=== PATIENT | female | born 1970 | race Two or more races ===

== ENCOUNTER 2024-02-09 13:37 | Outpatient (CLI) | payer OTHER | END 2024-02-09 13:53 | disposition home or self-care (01) | LOC: RAD 13:37 | PROVIDERS: ATTEND Orthopaedic Surgery | DX: M25.561 Pain in right knee (principal); M25.562 Pain in left knee | CPT/HCPCS: 73721 ==

== ENCOUNTER 2024-08-30 13:51 | Emergency (ER) | payer OTHER ==
[~2024-08-30] VITALS: Ht 167.6 cm; Wt 77.6 kg
[2024-08-30] MEDS ORDERED: ZYRTEC10 M3 PO (14:15)
[2024-08-30] MEDS ORDERED: FLONASE16 GM NS (14:15)
[2024-08-30] MEDS ORDERED: XYZAL5 MG (14:16)
[2024-08-30] MEDS ORDERED: DEXAMETHASONE SODIUM PHOSPHATE 4 MG/ML VIAL IM STA (16:14)
[2024-08-30] MEDS ORDERED: CETIRIZINE HCL 5 MG/5 ML ML PO STA (16:14)
[2024-08-30 16:36] LABS: HEMATOCRIT 42.3 % (36.0-45.00); HEMOGLOBIN 14.2 g/dL (12.0-15.00); MEAN CELL VOLUME 82.3 fL (80.00-100.00); MEAN CORPUSCULAR HEMOGLOBIN 27.6 pg (27.00-32.0); MEAN CORPUSCULAR HGB CONC 33.5 g/dl (32.0-36.0); PLATELET COUNT 274 K/uL (150-450); RED BLOOD COUNT 5.14 M/uL (4.00-6.00)
[2024-08-30] MEDS ORDERED: AMOX-CLAV 875-1 EAC1 PO (17:46)
[2024-08-30] MEDS ORDERED: ZYRTEC10 MG PO (17:46)
[2024-08-30] MEDS ORDERED: FLONASE ALLERG9.9 ML NASAL (17:46)
== END 2024-08-30 17:53 | disposition home or self-care (01) ==
LOC: ER 13:52
PROVIDERS: General Practice
DX: J32.1 Chronic frontal sinusitis (principal)

== ENCOUNTER 2025-04-13 07:30 | Emergency (ER) | payer OTHER ==
[~2025-04-13] VITALS: Ht 167.6 cm; Wt 77.6 kg
[~2025-04-13 07:30] MED LIST: AMOX-CLAV 875-1 EAC1 PO; FLONASE ALLERG9.9 ML NASAL; FLONASE16 GM NS; XYZAL5 MG; ZYRTEC10 M3 PO; ZYRTEC10 MG PO
[2025-04-13] MEDS ORDERED: SINGULAIR10 MG (08:01)
[2025-04-13] MEDS ORDERED: KETOROLAC TROMETHAMINE 60 MG VIAL IM ONE ×2 (08:30→08:45)
[2025-04-13 09:20] LABS: BASO % 0.7 % (0.1-1.2); EOS # 0.21 (0.04-0.54); EOS % 3.6 % (0.7-7.0); HEMATOCRIT 42.8 % (34.1-44.9); HEMOGLOBIN 13.9 g/dL (11.2-15.7); LYMPH # 1.41 (1.18-3.74); MEAN CORPUSCULAR HEMOGLOBIN 26.9 pg (25.6-32.2); MONO # 0.57 (0.24-0.82); MONO % 9.7 % (4.7-12.5); NEUT # 3.61 (1.56-6.13); NEUT % 61.5 % (34.0-71.1); PLATELET COUNT 287 K/uL (163-369); RED BLOOD COUNT 5.17 M/uL (3.93-5.22); RED CELL DISTRIBUTION WIDTH 13.8 % (11.6-14.4)
[2025-04-13] MEDS ORDERED: CEFTRIAXONE SODIUM 2,000 MG VIAL IV ONE (09:45)
[2025-04-13] MEDS ORDERED: CEFTRIAXONE SODIUM 2,000 MG VIAL ONE (09:57)
== END 2025-04-13 13:58 | disposition home or self-care (01) ==
LOC: ER 07:36
PROVIDERS: General Practice
DX: J32.1 Chronic frontal sinusitis (principal)